=== PATIENT | male | born 1950 | race Caucasian/White ===

== ENCOUNTER 2024-05-19 11:15 | Inpatient (IN) | payer OTHER, MEDICARE, MEDICAID ==
[~2024-05-19] VITALS: Ht 157.5 cm; Wt 58.8 kg
[~2024-05-19 11:15] MED LIST: APIX5TAB PO; ATOR40TA52 PO; BUSP15TA60 PO; CITA-73 PO; CLOP75TA70 PO; GABA-339 PO; GLIP5TAB21 PO; INSU100I4; INSUINJ37 SC; ISOS1TAB28 PO; LOSA-534 PO; MONT-8 PO; PANT40T PO; POTA1TAB4 PO
[2024-05-19] MEDS: ACCU-CHEK COMFORT CURVE STRIP VI STA (11:23)
[2024-05-19] MEDS ORDERED: fentaNYL CITRATE 100 MCG/2 ML VL IV ONE (11:30)
[2024-05-19 11:41] LABS: Base Excess -0.6 mmol/L (-2.0-2.0)
[2024-05-19 11:50] VITALS: PULSE 70; RESP 16; O2SAT 97
[2024-05-19 12:14] LABS: Basophils # (auto) 0 10 ^3/uL (0-0.2); Basophils % (auto) 0.3 % (0.0-2.0); Eosinophils # (auto) 0.1 10 ^3/uL (0-0.8); Hematocrit 35.1 % (41.0-53.0); Hemoglobin 11.7 g/dL (13.5-17.5); Lymphocytes # (auto) 0.8 10 ^3/uL (0.4-5.4); Lymphocytes % (auto) 8.6 % (10.0-50.0); Mean Corpuscular Hemoglobin 29.1 pg (28.0-32.0); Mean Corpuscular Hgb Conc. 33.3 g/dL (32.0-36.0); Mean Corpuscular Volume 87.3 fL (80.0-100.0); Monocytes # (auto) 0.5 10 ^3/uL (0-1.3); Monocytes % (auto) 5.3 % (0.0-12.0); Neutrophils # (auto) 7.7 10 ^3/uL (1.6-8.6); Neutrophils % (auto) 84.8 % (37.0-80.0); Platelet Count (auto) 204 10^3/uL (140-450); Red Blood Cells 4.02 10^6/uL (4.5-5.90); Red Cell Distribution Width 15.2 % (11.8-14.3); White Blood Cell 9.1 10^3/uL (4.4-10.8)
[2024-05-19] MEDS: ONDANSETRON HCL 4 MG/2 ML VIAL IV ONE (12:21)
[2024-05-19] MEDS: SODIUM CHLORIDE 0.9% 1,000 ML IV ONE (12:24)
[2024-05-19] MEDS: InsuLIN REG 1unit/0.01ml Soln (100units/ml) SC ONE (12:24)
[2024-05-19 12:27] LABS: Alanine Aminotransferase 14 U/L (7-40); Alkaline Phosphatase 97 U/L (46-116); Anion Gap 5 (5-15); Aspartate Aminotransferase 14 U/L (13-40); BUN/Creatinine Ratio 11.1 (10.0-20.0); Blood Urea Nitrogen 12 mg/dL (9-23); Calcium 8.1 mg/dL (8.7-10.4); Carbon Dioxide 26 mmol/L (20-30); Chloride 106 mmol/L (98-107); Glucose 367 mg/dL (74-106); Lipase 28 U/L (12-53); Potassium 3.7 mmol/L (3.5-5.1); Sodium 137 mmol/L (136-145)
[2024-05-19 12:28] LABS: Albumin 3.4 g/dL (3.2-4.8); Bilirubin, Total 0.3 mg/dL (0.2-1.0); Total Protein 5.7 g/dL (5.7-8.2)
[2024-05-19] MEDS: fentaNYL CITRATE 100 MCG/2 ML VL IM ONE (12:57)
[2024-05-19] MEDS ORDERED: busPIRone HCL 10 MG TAB PO SCH (14:00)
[2024-05-19 14:41] LABS: Urine Bacteria None Seen /hpf (None Seen)
[2024-05-19] MEDS ORDERED: DEXTROSE (50%) 50ML SYRG IV PRN (14:45)
[2024-05-19] MEDS ORDERED: ONDANSETRON HCL 4 MG/2 ML VIAL IV PRN (14:45)
[2024-05-19 15:04] LABS: Urine Blood Negative /uL (Negative); Urine Clarity Clear (Clear); Urine Color Light-Yellow (Yellow); Urine Protein, UAD 2+ (Negative); Urine Specific Gravity 1.033 (1.001-1.035); Urine Urobilinogen Normal (Negative); Urine WBC 1 /hpf (0 - 3); Urine pH 6.5 (5.0-9.0)
[2024-05-19] MEDS: SODIUM CHLORIDE 0.9% 1,000 ML IV SCH (15:10)
[2024-05-19] MEDS: GABAPENTIN 300 MG CAP PO ONE (15:33)
[2024-05-19] MEDS: KETOROLAC TROMETH 30 MG/ML 1ML VIAL IV ONE (15:42)
[2024-05-19] MEDS: InsuLIN REG 1unit/0.01ml Soln (100units/ml) SC SCH (17:11)
[2024-05-19] MEDS: ACCU-CHEK COMFORT CURVE STRIP VI SCH (17:12)
[2024-05-19 18:00] VITALS: BP 121/67; PULSE 56; RESP 18; TEMP 98.8; O2SAT 95
[2024-05-19 21:00] VITALS: BP 111/58; PULSE 55; RESP 18; TEMP 98; O2SAT 97
[2024-05-19] MEDS: DOCUSATE SOD 100 MG CAP PO PRN (21:34)
[2024-05-19] MEDS: APIXABAN 5 MG TAB PO SCH (21:35)
[2024-05-19] MEDS: GABAPENTIN 300 MG CAP PO SCH (21:35)
[2024-05-19] MEDS: ASCORBIC ACID 500 MG TAB PO SCH (21:35)
[2024-05-19] MEDS: busPIRone HCL 10 MG TAB PO SCH (21:38)
[2024-05-19] MEDS: KETOROLAC TROMETH 30 MG/ML 1ML VIAL IV PRN (21:40)
[2024-05-20 01:00] VITALS: BP 122/64; PULSE 54; RESP 17; TEMP 97.6; O2SAT 94
[2024-05-20 04:45] LABS: Basophils # (auto) 0 10 ^3/uL (0-0.2); Basophils % (auto) 0.6 % (0.0-2.0); Eosinophils # (auto) 0.3 10 ^3/uL (0-0.8); Eosinophils % (auto) 4.3 % (0.0-7.0); Hematocrit 32.1 % (41.0-53.0); Hemoglobin 10.7 g/dL (13.5-17.5); Lymphocytes # (auto) 1.4 10 ^3/uL (0.4-5.4); Lymphocytes % (auto) 22.6 % (10.0-50.0); Mean Corpuscular Hemoglobin 29.1 pg (28.0-32.0); Mean Corpuscular Hgb Conc. 33.3 g/dL (32.0-36.0); Mean Corpuscular Volume 87.3 fL (80.0-100.0); Monocytes # (auto) 0.5 10 ^3/uL (0-1.3); Monocytes % (auto) 8.8 % (0.0-12.0); Neutrophils % (auto) 63.7 % (37.0-80.0); Platelet Count (auto) 184 10^3/uL (140-450); Red Blood Cells 3.68 10^6/uL (4.5-5.90); Red Cell Distribution Width 15.2 % (11.8-14.3); White Blood Cell 6.2 10^3/uL (4.4-10.8)
[2024-05-20 05:00] VITALS: BP 138/69; PULSE 52; RESP 18; TEMP 97.5; O2SAT 96
[2024-05-20 05:02] LABS: Alanine Aminotransferase 14 U/L (7-40); Albumin 3.2 g/dL (3.2-4.8); Alkaline Phosphatase 88 U/L (46-116); Anion Gap 3 (5-15); Aspartate Aminotransferase 11 U/L (13-40); BUN/Creatinine Ratio 13.6 (10.0-20.0); Bilirubin, Total 0.3 mg/dL (0.2-1.0); Blood Urea Nitrogen 14 mg/dL (9-23); Calcium 8.4 mg/dL (8.7-10.4); Carbon Dioxide 30 mmol/L (20-30); Chloride 108 mmol/L (98-107); Potassium 3.4 mmol/L (3.5-5.1); Sodium 141 mmol/L (136-145); Total Protein 5.1 g/dL (5.7-8.2)
[2024-05-20 05:03] LABS: Glucose 158 mg/dL (74-106)
[2024-05-20] MEDS: ISOSORBIDE MONONITRATE ER 60 MG TAB PO SCH (06:11)
[2024-05-20] MEDS: CITALOPRAM HYDROBR 20 MG TAB PO SCH (06:12)
[2024-05-20] MEDS: CLOPIDOGREL BISULFATE 75 MG TAB PO SCH (06:12)
[2024-05-20 08:37] VITALS: BP 117/54; PULSE 58; RESP 16; TEMP 98; O2SAT 96
[2024-05-20] MEDS: LOSARTAN POTASSIUM 50 MG TAB PO SCH (08:58)
[2024-05-20] MEDS: MONTELUKAST SODIUM 10 MG TAB PO SCH (08:58)
[2024-05-20] MEDS: PANTOPRAZOLE 40 MG TAB PO SCH (08:58)
[2024-05-20] MEDS: ZINC SULFATE 220mg CAP or TAB PO SCH (08:59)
[2024-05-20] MEDS: MULTIPLE VITAMIN TAB PO SCH (08:59)
[2024-05-20] MEDS ORDERED: ENOXAPARIN SOD 40 MG/0.4 ML SYRINGE SC SCH (10:00)
[2024-05-20 12:59] VITALS: BP 137/75; PULSE 55; RESP 16; TEMP 97.9; O2SAT 94
[2024-05-20] MEDS: LACTULOSE 20Gm/30ML SOLN PO ONE (14:07)
[2024-05-20 16:43] VITALS: BP 140/75; PULSE 65; RESP 18; TEMP 98.3; O2SAT 96
[2024-05-20] MEDS: ACETAMINOPHEN 325 MG TAB PO PRN (17:35)
[2024-05-20 21:00] VITALS: BP 133/63; PULSE 65; RESP 18; TEMP 98; O2SAT 94
[2024-05-20] MEDS: MUPIROCIN 2% OINT 15gm or 22gm FOR MRSA NARES EACHNOSTRI SCH (22:29)
[2024-05-21] VITALS (8 sets, daily range): BP systolic 133–163; BP diastolic 54–80; PULSE 52–63; RESP 16–96; TEMP 98.1–98.7; O2SAT 94–99
[2024-05-21] MEDS: LACTULOSE 20Gm/30ML SOLN PO SCH (09:24)
[2024-05-22] VITALS (8 sets, daily range): BP systolic 111–177; BP diastolic 54–76; PULSE 52–65; RESP 16–18; TEMP 97.4–98.6; O2SAT 95–97
[2024-05-23] VITALS (7 sets, daily range): BP systolic 143–156; BP diastolic 57–81; PULSE 60–72; RESP 16–17; TEMP 97.9–99.2; O2SAT 93–96
[2024-05-23] MEDS ORDERED: ZOLP5TAB5 PO (16:39)
[2024-05-23] MEDS ORDERED: MIRT1TAB38 PO (16:39)
[2024-05-23] MEDS ORDERED: LISI40TA16 PO (16:39)
[2024-05-23] MEDS ORDERED: DULO20CA PO (16:39)
[2024-05-23] MEDS ORDERED: BUPR150T18 PO (16:39)
== END 2024-05-23 18:00 | disposition home or self-care (01) | DRG 392 ==
LOC: EDBD 11:15 → ER 11:18 → OVERFLOW 14:39 → WEST WING 17:51
PROVIDERS: ADMIT Nurse Practitioner Family; ATTEND Family Medicine
DX: K59.00 Constipation, unspecified (principal); J44.1 Chronic obstructive pulmonary disease with (acute) exacerbation; I50.32 Chronic diastolic (congestive) heart failure; E11.65 Type 2 diabetes mellitus with hyperglycemia; K21.9 Gastro-esophageal reflux disease without esophagitis; I50.9 Heart failure, unspecified; E11.42 Type 2 diabetes mellitus with diabetic polyneuropathy; F41.9 Anxiety disorder, unspecified; I11.0 Hypertensive heart disease with heart failure; E78.5 Hyperlipidemia, unspecified; F32.A Depression, unspecified; Z88.8 Allergy status to other drugs, medicaments and biological substances; I25.2 Old myocardial infarction; Z86.73 Personal history of transient ischemic attack (TIA), and cerebral infarction without residual deficits; Z89.612 Acquired absence of left leg above knee; Z89.512 Acquired absence of left leg below knee; Z95.5 Presence of coronary angioplasty implant and graft; Z89.511 Acquired absence of right leg below knee; Z89.611 Acquired absence of right leg above knee; Z79.02 Long term (current) use of antithrombotics/antiplatelets; Z79.4 Long term (current) use of insulin
CPT/HCPCS: 36415; 36600; 74176; 80053; 81001; 82805; 82962; 83036; 83690; 85025; 87081; 93005; 96372; 96374; G0378; J1815; J1885; J2405

== ENCOUNTER 2024-06-14 11:19 | Inpatient (IN) | payer OTHER, MEDICARE, MEDICAID ==
[~2024-06-14] VITALS: Ht 154.9 cm; Wt 53.7 kg
[~2024-06-14 11:19] MED LIST changes: +BUPR150T18 PO; +DULO20CA PO; +LISI40TA16 PO; -LOSA-534 PO; +MIRT1TAB38 PO; +ZOLP5TAB5 PO
[2024-06-14 14:19] LABS: Basophils # (auto) 0 10 ^3/uL (0-0.2); Basophils % (auto) 0.4 % (0.0-2.0); Eosinophils # (auto) 0.1 10 ^3/uL (0-0.8); Eosinophils % (auto) 2.2 % (0.0-7.0); Hematocrit 36.2 % (41.0-53.0); Hemoglobin 12.1 g/dL (13.5-17.5); Lymphocytes # (auto) 0.9 10 ^3/uL (0.4-5.4); Lymphocytes % (auto) 15.6 % (10.0-50.0); Mean Corpuscular Hemoglobin 28.7 pg (28.0-32.0); Mean Corpuscular Hgb Conc. 33.4 g/dL (32.0-36.0); Mean Corpuscular Volume 85.8 fL (80.0-100.0); Monocytes # (auto) 0.4 10 ^3/uL (0-1.3); Monocytes % (auto) 7.7 % (0.0-12.0); Neutrophils # (auto) 4.2 10 ^3/uL (1.6-8.6); Neutrophils % (auto) 74.1 % (37.0-80.0); Platelet Count (auto) 224 10^3/uL (140-450); Red Blood Cells 4.22 10^6/uL (4.5-5.90); Red Cell Distribution Width 15.1 % (11.8-14.3); White Blood Cell 5.6 10^3/uL (4.4-10.8)
[2024-06-14 14:31] LABS: Alanine Aminotransferase 11 U/L (7-40); Albumin 3.8 g/dL (3.2-4.8); Alkaline Phosphatase 101 U/L (46-116); Anion Gap 6 (5-15); Aspartate Aminotransferase < 8 U/L (13-40); BUN/Creatinine Ratio 11.1 (10.0-20.0); Bilirubin, Total 0.3 mg/dL (0.2-1.0); Blood Urea Nitrogen 12 mg/dL (9-23); Calcium 9.3 mg/dL (8.7-10.4); Carbon Dioxide 29 mmol/L (20-30); Chloride 104 mmol/L (98-107); Glucose 267 mg/dL (74-106); Potassium 3.6 mmol/L (3.5-5.1); Sodium 139 mmol/L (136-145); Total Protein 6.4 g/dL (5.7-8.2)
[2024-06-14 14:33] LABS: Thyroid Stimulating Hormone 0.58 uIU/mL (0.55-4.78)
[2024-06-14 15:57] LABS: Urine Bacteria MANY /hpf (None Seen); Urine Blood 2+ /uL (Negative); Urine Clarity Ex.Turbid (Clear); Urine Color Light-Brown (Yellow); Urine Mucus FEW (None Seen); Urine Protein, UAD 3+ (Negative); Urine Specific Gravity 1.032 (1.001-1.035); Urine Urobilinogen Normal (Negative); Urine WBC 2386 /hpf (0 - 3); Urine WBC Clumps PRESENT /hpf (None Seen); Urine pH 7.5 (5.0-9.0)
[2024-06-14] MEDS ORDERED: HYDROmorphone HCL 2 MG/ML VL/or syr IV PRN (18:15)
[2024-06-14] MEDS ORDERED: DEXTROSE (50%) 50ML SYRG IV PRN (18:15)
[2024-06-14] MEDS ORDERED: ACETAMINOPHEN 325 MG TAB PO PRN (18:15)
[2024-06-14] MEDS: LACTATED RINGER'S 1,000 ML IV ONE (18:15)
[2024-06-14] MEDS: cefTRIAXone 1GM/50ML D5W 50 ML IV ONE (19:50)
[2024-06-14 20:21] VITALS: PULSE 58; RESP 16; O2SAT 96
[2024-06-14] MEDS: SODIUM CHLOR 0.9% PF (SALINE LOCK) 10ML VIAL/SYR IV SCH (23:01)
[2024-06-14] MEDS: InsuLIN REG 1unit/0.01ml Soln (100units/ml) SC SCH (23:06)
[2024-06-14] MEDS: ACCU-CHEK COMFORT CURVE STRIP VI SCH (23:06)
[2024-06-15 06:07] LABS: Basophils # (auto) 0 10 ^3/uL (0-0.2); Basophils % (auto) 0.4 % (0.0-2.0); Eosinophils # (auto) 0.2 10 ^3/uL (0-0.8); Eosinophils % (auto) 3.1 % (0.0-7.0); Hematocrit 36.6 % (41.0-53.0); Hemoglobin 12.4 g/dL (13.5-17.5); Lymphocytes % (auto) 13.7 % (10.0-50.0); Mean Corpuscular Hemoglobin 28.9 pg (28.0-32.0); Mean Corpuscular Hgb Conc. 33.8 g/dL (32.0-36.0); Mean Corpuscular Volume 85.6 fL (80.0-100.0); Monocytes # (auto) 0.6 10 ^3/uL (0-1.3); Monocytes % (auto) 8.3 % (0.0-12.0); Neutrophils # (auto) 5.6 10 ^3/uL (1.6-8.6); Neutrophils % (auto) 74.5 % (37.0-80.0); Nucleated Red Blood Cells % 0.1 %; Platelet Count (auto) 231 10^3/uL (140-450); Red Blood Cells 4.28 10^6/uL (4.5-5.90); Red Cell Distribution Width 15.3 % (11.8-14.3); White Blood Cell 7.5 10^3/uL (4.4-10.8)
[2024-06-15 06:13] LABS: Alanine Aminotransferase 10 U/L (7-40); Alkaline Phosphatase 104 U/L (46-116); Anion Gap 6 (5-15); Aspartate Aminotransferase 10 U/L (13-40); Blood Urea Nitrogen 17 mg/dL (9-23); Calcium 9.3 mg/dL (8.7-10.4); Carbon Dioxide 30 mmol/L (20-30); Chloride 105 mmol/L (98-107); Glucose 99 mg/dL (74-106); Potassium 2.9 mmol/L (3.5-5.1); Sodium 141 mmol/L (136-145)
[2024-06-15 06:14] LABS: Bilirubin, Total 0.3 mg/dL (0.2-1.0); Total Protein 6.6 g/dL (5.7-8.2)
[2024-06-15] MEDS: cefTRIAXone 1GM/50ML D5W 50 ML IV SCH (10:21)
[2024-06-15] MEDS: ENOXAPARIN SOD 40 MG/0.4 ML SYRINGE SC SCH (10:22)
[2024-06-15] MEDS: hydrALAZINE HCL 20 MG/ML VL IV PRN (22:04)
[2024-06-16] VITALS (10 sets, daily range): BP systolic 117–153; BP diastolic 61–86; PULSE 40–88; RESP 18–19; TEMP 97.8–99.3; O2SAT 94–97
[2024-06-16] MEDS: POTASSIUM CHL 20MEQ/100ML 100 ML IV SCH ×2 (01:26→08:15)
[2024-06-16] MEDS: POTASSIUM CHL 20MEQ/100ML 100 ML IV ONE (06:25)
[2024-06-16 06:45] LABS: Basophils # (auto) 0 10 ^3/uL (0-0.2); Basophils % (auto) 0.3 % (0.0-2.0); Eosinophils # (auto) 0.1 10 ^3/uL (0-0.8); Eosinophils % (auto) 1.7 % (0.0-7.0); Hematocrit 33.1 % (41.0-53.0); Hemoglobin 11.3 g/dL (13.5-17.5); Lymphocytes % (auto) 12.8 % (10.0-50.0); Mean Corpuscular Hgb Conc. 34.2 g/dL (32.0-36.0); Mean Corpuscular Volume 84.7 fL (80.0-100.0); Monocytes # (auto) 0.7 10 ^3/uL (0-1.3); Monocytes % (auto) 8.8 % (0.0-12.0); Neutrophils # (auto) 5.7 10 ^3/uL (1.6-8.6); Neutrophils % (auto) 76.4 % (37.0-80.0); Platelet Count (auto) 189 10^3/uL (140-450); Red Blood Cells 3.91 10^6/uL (4.5-5.90); Red Cell Distribution Width 15.3 % (11.8-14.3); White Blood Cell 7.4 10^3/uL (4.4-10.8)
[2024-06-16 07:00] LABS: Alanine Aminotransferase 10 U/L (7-40); Albumin 3.5 g/dL (3.2-4.8); Alkaline Phosphatase 97 U/L (46-116); Anion Gap 6 (5-15); Aspartate Aminotransferase 10 U/L (13-40); BUN/Creatinine Ratio 15.7 (10.0-20.0); Blood Urea Nitrogen 16 mg/dL (9-23); Calcium 8.7 mg/dL (8.7-10.4); Carbon Dioxide 26 mmol/L (20-30); Chloride 105 mmol/L (98-107); Potassium 3.3 mmol/L (3.5-5.1); Sodium 137 mmol/L (136-145)
[2024-06-16 07:01] LABS: Bilirubin, Total 0.3 mg/dL (0.2-1.0); Total Protein 5.8 g/dL (5.7-8.2)
[2024-06-16 07:08] LABS: Glucose 237 mg/dL (74-106)
[2024-06-16] MEDS: HYDROcodone-ACET 5/325MG TAB PO PRN (21:07)
[2024-06-16] MEDS: MORPHINE SULFATE 4 MG/ML SYR/VIAL ONE (23:16)
[2024-06-17] VITALS (8 sets, daily range): BP systolic 105–166; BP diastolic 52–80; PULSE 43–72; RESP 16–19; TEMP 97.6–98.5; O2SAT 92–97
[2024-06-17 05:33] LABS: Basophils # (auto) 0 10 ^3/uL (0-0.2); Basophils % (auto) 0.6 % (0.0-2.0); Eosinophils # (auto) 0.2 10 ^3/uL (0-0.8); Eosinophils % (auto) 3.8 % (0.0-7.0); Hematocrit 31.7 % (41.0-53.0); Hemoglobin 10.8 g/dL (13.5-17.5); Lymphocytes # (auto) 1.1 10 ^3/uL (0.4-5.4); Lymphocytes % (auto) 21.2 % (10.0-50.0); Mean Corpuscular Hemoglobin 28.8 pg (28.0-32.0); Mean Corpuscular Hgb Conc. 33.9 g/dL (32.0-36.0); Monocytes # (auto) 0.5 10 ^3/uL (0-1.3); Monocytes % (auto) 8.8 % (0.0-12.0); Neutrophils # (auto) 3.5 10 ^3/uL (1.6-8.6); Neutrophils % (auto) 65.6 % (37.0-80.0); Platelet Count (auto) 182 10^3/uL (140-450); Red Blood Cells 3.74 10^6/uL (4.5-5.90); White Blood Cell 5.3 10^3/uL (4.4-10.8)
[2024-06-17 05:54] LABS: Albumin 3.3 g/dL (3.2-4.8); Alkaline Phosphatase 88 U/L (46-116); Anion Gap 4 (5-15); Aspartate Aminotransferase 8 U/L (13-40); BUN/Creatinine Ratio 12.6 (10.0-20.0); Blood Urea Nitrogen 14 mg/dL (9-23); Calcium 8.4 mg/dL (8.7-10.4); Carbon Dioxide 26 mmol/L (20-30); Chloride 107 mmol/L (98-107); Glucose 282 mg/dL (74-106); Potassium 3.7 mmol/L (3.5-5.1); Sodium 137 mmol/L (136-145)
[2024-06-17 05:55] LABS: Bilirubin, Total 0.2 mg/dL (0.2-1.0); Total Protein 5.5 g/dL (5.7-8.2)
[2024-06-17 06:17] LABS: Alanine Aminotransferase 9 U/L (7-40)
[2024-06-17] MEDS: ONDANSETRON HCL 4 MG/2 ML VIAL IV PRN (09:22)
[2024-06-17] MEDS ORDERED: DEXTROSE (50%) 50ML SYRG IV PRN (09:30)
[2024-06-17] MEDS: InsuLIN REG 1unit/0.01ml Soln (100units/ml) SC SCH (10:54)
[2024-06-17] MEDS: ACCU-CHEK COMFORT CURVE STRIP VI SCH (11:48)
[2024-06-17] MEDS: MUPIROCIN 2% OINT 15gm or 22gm FOR MRSA NARES EACHNOSTRI SCH (21:00)
[2024-06-18] VITALS (8 sets, daily range): BP systolic 135–152; BP diastolic 65–85; PULSE 56–73; RESP 17–19; TEMP 97.2–98.7; O2SAT 93–97
[2024-06-18 05:37] LABS: Basophils # (auto) 0 10 ^3/uL (0-0.2); Basophils % (auto) 0.8 % (0.0-2.0); Eosinophils # (auto) 0.2 10 ^3/uL (0-0.8); Hematocrit 32.4 % (41.0-53.0); Hemoglobin 11.1 g/dL (13.5-17.5); Mean Corpuscular Hemoglobin 29.1 pg (28.0-32.0); Mean Corpuscular Hgb Conc. 34.2 g/dL (32.0-36.0); Monocytes # (auto) 0.5 10 ^3/uL (0-1.3); Monocytes % (auto) 8.1 % (0.0-12.0); Neutrophils # (auto) 3.9 10 ^3/uL (1.6-8.6); Neutrophils % (auto) 69.1 % (37.0-80.0); Platelet Count (auto) 205 10^3/uL (140-450); Red Blood Cells 3.81 10^6/uL (4.5-5.90); White Blood Cell 5.6 10^3/uL (4.4-10.8)
[2024-06-18 05:56] LABS: Alanine Aminotransferase 10 U/L (7-40); Albumin 3.5 g/dL (3.2-4.8); Alkaline Phosphatase 89 U/L (46-116); Anion Gap 6 (5-15); Aspartate Aminotransferase 11 U/L (13-40); BUN/Creatinine Ratio 12.9 (10.0-20.0); Bilirubin, Total 0.3 mg/dL (0.2-1.0); Blood Urea Nitrogen 12 mg/dL (9-23); Calcium 8.7 mg/dL (8.7-10.4); Carbon Dioxide 26 mmol/L (20-30); Chloride 106 mmol/L (98-107); Potassium 3.3 mmol/L (3.5-5.1); Sodium 138 mmol/L (136-145); Total Protein 5.8 g/dL (5.7-8.2)
[2024-06-18 05:59] LABS: Glucose 123 mg/dL (74-106)
[2024-06-18] MEDS: GOLYTELY 4L KIT PO ONE (14:15)
[2024-06-19] VITALS (8 sets, daily range): BP systolic 115–143; BP diastolic 6–72; PULSE 43–66; RESP 14–22; TEMP 98.1–98.7; O2SAT 63–98
[2024-06-19] MEDS: MAGNESIUM CITRATE SOLUTION 300 ML BTL PO ONE (03:00)
[2024-06-19] MEDS: GOLYTELY 4L KIT PO ONE (03:12)
[2024-06-19 06:20] LABS: Alanine Aminotransferase 14 U/L (7-40); Alkaline Phosphatase 101 U/L (46-116); Anion Gap 8 (5-15); BUN/Creatinine Ratio 9.1 (10.0-20.0); Blood Urea Nitrogen 9 mg/dL (9-23); Calcium 9.4 mg/dL (8.7-10.4); Carbon Dioxide 28 mmol/L (20-30); Chloride 103 mmol/L (98-107); Glucose 133 mg/dL (74-106); Potassium 3.8 mmol/L (3.5-5.1); Sodium 139 mmol/L (136-145)
[2024-06-19 06:21] LABS: Aspartate Aminotransferase 17 U/L (13-40); Bilirubin, Total 0.3 mg/dL (0.2-1.0); Total Protein 6.6 g/dL (5.7-8.2)
[2024-06-19 06:22] LABS: Basophils # (auto) 0 10 ^3/uL (0-0.2); Basophils % (auto) 0.9 % (0.0-2.0); Eosinophils # (auto) 0.2 10 ^3/uL (0-0.8); Eosinophils % (auto) 4.3 % (0.0-7.0); Hematocrit 35.3 % (41.0-53.0); Hemoglobin 12.2 g/dL (13.5-17.5); Lymphocytes % (auto) 22.8 % (10.0-50.0); Mean Corpuscular Hemoglobin 29.2 pg (28.0-32.0); Mean Corpuscular Hgb Conc. 34.4 g/dL (32.0-36.0); Monocytes # (auto) 0.4 10 ^3/uL (0-1.3); Monocytes % (auto) 8.6 % (0.0-12.0); Neutrophils # (auto) 2.9 10 ^3/uL (1.6-8.6); Neutrophils % (auto) 63.4 % (37.0-80.0); Platelet Count (auto) 232 10^3/uL (140-450); Red Blood Cells 4.16 10^6/uL (4.5-5.90); Red Cell Distribution Width 15.2 % (11.8-14.3); White Blood Cell 4.6 10^3/uL (4.4-10.8)
[2024-06-19] MEDS ORDERED: SODIUM CHLORIDE LOCK 10 ML ONE (08:01)
[2024-06-19 08:39] LABS: INR 1.08 (0.9-1.15); Prothrombin Time 11.4 sec (9.3-11.8)
[2024-06-19] MEDS: LIDOCAINE VISCOUS 2% 15ML UD ONE (09:53)
[2024-06-19] MEDS: MIDAZOLAM HCL 5 MG/ML-1ML VIAL ONE (09:59)
[2024-06-19] MEDS: fentaNYL CITRATE 100 MCG/2 ML VL ONE (09:59)
[2024-06-19] MEDS: diphenhdrAMINE HCL 50 MG/1 ML VL ONE (09:59)
[2024-06-20] VITALS (8 sets, daily range): BP systolic 127–156; BP diastolic 73–95; PULSE 50–80; RESP 15–18; TEMP 98–99; O2SAT 93–97
[2024-06-20 11:34] LABS: COVID19 ANTIGEN SOFIA FIA NEGATIVE (NEGATIVE)
[2024-06-20] MEDS: LORazepam 0.5 MG TAB PO PRN (16:05)
[2024-06-21] VITALS (8 sets, daily range): BP systolic 140–155; BP diastolic 53–94; PULSE 39–70; RESP 15–20; TEMP 97.8–98.7; O2SAT 94–98
[2024-06-21] MEDS ORDERED: DEXTROSE (50%) 50ML SYRG IV PRN (00:15)
[2024-06-21] MEDS: InsuLIN REG 1unit/0.01ml Soln (100units/ml) SC SCH (04:00)
[2024-06-21] MEDS ORDERED: ACCU-CHEK COMFORT CURVE STRIP VI SCH (04:00)
[2024-06-21] MEDS: ACCU-CHEK COMFORT CURVE STRIP VI SCH (04:01)
[2024-06-21] MEDS: DOCUSATE SOD 100 MG CAP PO PRN (23:18)
[2024-06-22] VITALS (9 sets, daily range): BP systolic 105–152; BP diastolic 71–77; PULSE 58–75; RESP 15–20; TEMP 97.5–98.9; O2SAT 93–98
[2024-06-23] VITALS (7 sets, daily range): BP systolic 141–152; BP diastolic 64–75; PULSE 54–65; RESP 18–22; TEMP 98.2–98.6; O2SAT 93–97
[2024-06-23] MEDS ORDERED: CIPR-173 PO (09:02)
[2024-06-23] MEDS ORDERED: HYDR-4902 PO (09:02)
== END 2024-06-23 18:54 | disposition home or self-care (01) | DRG 394 ==
LOC: ER 11:19 → OVERFLOW 18:04 → TELE-EAST 18:16 → EAST 06-15 23:52 → TELE-EAST 06-16 01:27
PROVIDERS: ADMIT Internal Medicine; ATTEND Family Medicine
PROC: 0DB68ZX Excision of Stomach, Via Natural or Artificial Opening Endoscopic, Diagnostic (ICD-10-PCS; 2024-06-19)
PROC: 0DB48ZX Excision of Esophagogastric Junction, Via Natural or Artificial Opening Endoscopic, Diagnostic (ICD-10-PCS; 2024-06-19)
PROC: 0DBP8ZZ Excision of Rectum, Via Natural or Artificial Opening Endoscopic (ICD-10-PCS; principal; 2024-06-19 09:50)
PROC: 0DB98ZX Excision of Duodenum, Via Natural or Artificial Opening Endoscopic, Diagnostic (ICD-10-PCS; 2024-06-19 09:50)
DX: K62.1 Rectal polyp (principal); I50.32 Chronic diastolic (congestive) heart failure; N30.00 Acute cystitis without hematuria; J44.1 Chronic obstructive pulmonary disease with (acute) exacerbation; K29.80 Duodenitis without bleeding; K29.70 Gastritis, unspecified, without bleeding; F41.9 Anxiety disorder, unspecified; I11.0 Hypertensive heart disease with heart failure; N28.1 Cyst of kidney, acquired; Z20.822 Contact with and (suspected) exposure to COVID-19; K57.30 Diverticulosis of large intestine without perforation or abscess without bleeding; K44.9 Diaphragmatic hernia without obstruction or gangrene; K21.9 Gastro-esophageal reflux disease without esophagitis; E11.9 Type 2 diabetes mellitus without complications; D17.5 Benign lipomatous neoplasm of intra-abdominal organs; Z79.4 Long term (current) use of insulin; Z79.02 Long term (current) use of antithrombotics/antiplatelets; Z99.3 Dependence on wheelchair; I25.2 Old myocardial infarction; Z88.8 Allergy status to other drugs, medicaments and biological substances; Z86.73 Personal history of transient ischemic attack (TIA), and cerebral infarction without residual deficits; Z89.612 Acquired absence of left leg above knee; Z89.611 Acquired absence of right leg above knee
CPT/HCPCS: 36415; 43239; 45380; 71045; 74176; 80053; 81001; 82962; 83036; 83605; 83615; 83735; 84443; 85025; 85610; 85730; 86850; 86900; 86901; 87040; 87081; 87086; 87426; 93005; 97110; 97163; 99291; G0378; J1815; J2250; J2405; J3480

== ENCOUNTER 2024-07-01 11:54 | Inpatient (IN) | payer MEDICARE, MEDICAID ==
[2024-07-01] VITALS (28 sets, daily range): BP systolic 78–127; BP diastolic 39–76; PULSE 55–117; RESP 14–29; TEMP 98.6–100.8; O2SAT 93–100
[~2024-07-01] VITALS: Ht 91.4 cm; Wt 53.9 kg
[~2024-07-01 11:54] MED LIST changes: +CIPR-173 PO; +HALO0.5T9 PA; +HYDR-4902 PO; -INSU100I4; +INSU100I4 SC
[2024-07-01] MEDS: ETOMIDATE (2MG/ML) 20ML VIAL IV ONE ×2 (12:06→12:09)
[2024-07-01] MEDS: SUCCINYLCHOLINE CHLORIDE 20 MG/ML 10ML VIAL IV ONE ×2 (12:06→12:09)
[2024-07-01] MEDS: MIDAZOLAM DRIP 50 mg/50mL 50 ML IV SCH (12:11)
[2024-07-01] MEDS: MIDAZOLAM DRIP 50 mg/50mL 50 ML IV ONE (12:11)
[2024-07-01 12:27] LABS: Basophils # (auto) 0 10 ^3/uL (0-0.2); Basophils % (auto) 0.1 % (0.0-2.0); Eosinophils # (auto) 0 10 ^3/uL (0-0.8); Lymphocytes # (auto) 0.4 10 ^3/uL (0.4-5.4); Mean Corpuscular Hemoglobin 29.1 pg (28.0-32.0); Mean Corpuscular Hgb Conc. 34.1 g/dL (32.0-36.0); Mean Corpuscular Volume 85.3 fL (80.0-100.0); Monocytes # (auto) 0.8 10 ^3/uL (0-1.3); Monocytes % (auto) 4.2 % (0.0-12.0); Neutrophils # (auto) 16.9 10 ^3/uL (1.6-8.6); Neutrophils % (auto) 93.7 % (37.0-80.0); Platelet Count (auto) 364 10^3/uL (140-450); Red Blood Cells 4.81 10^6/uL (4.5-5.90); Red Cell Distribution Width 15.5 % (11.8-14.3)
[2024-07-01] MEDS: fentaNYL Drip 2500mCg/250mlNS 250 ML IV SCH (12:35)
[2024-07-01] MEDS: fentaNYL Drip 2500mCg/250mlNS 250 ML IV ONE (12:47)
[2024-07-01 12:58] LABS: Alanine Aminotransferase 17 U/L (7-40); Albumin 4.2 g/dL (3.2-4.8); Alkaline Phosphatase 106 U/L (46-116); Anion Gap 9 (5-15); Aspartate Aminotransferase 30 U/L (13-40); BUN/Creatinine Ratio 16.5 (10.0-20.0); Bilirubin, Total 0.3 mg/dL (0.2-1.0); Blood Urea Nitrogen 18 mg/dL (9-23); Calcium 9.3 mg/dL (8.7-10.4); Carbon Dioxide 28 mmol/L (20-30); Chloride 104 mmol/L (98-107); Glucose 105 mg/dL (74-106); Sodium 141 mmol/L (136-145); Total Protein 6.8 g/dL (5.7-8.2)
[2024-07-01] MEDS: PROPOFOL 100 ML IV SCH (12:58)
[2024-07-01] MEDS: PROPOFOL 100 ML IV ONE (13:01)
[2024-07-01 13:03] LABS: Lactic Acid w/Reflex 2.4 mmol/L (0.4-2.0)
[2024-07-01 13:11] LABS: Urine Bacteria None Seen /hpf (None Seen)
[2024-07-01 13:25] LABS: Urine Blood 3+ /uL (Negative); Urine Clarity Clear (Clear); Urine Color Yellow (Yellow); Urine Protein, UAD 3+ (Negative); Urine Specific Gravity 1.024 (1.001-1.035); Urine Urobilinogen Normal (Negative); Urine WBC 1 /hpf (0 - 3); Urine pH 6.5 (5.0-9.0)
[2024-07-01] MEDS: EPINEPHrine HCL 250 ML IV ONE ×2 (13:27→13:52)
[2024-07-01] MEDS: AMIODARONE 450mg/250ml AE 250 ML IV ONE (13:28)
[2024-07-01 14:24] LABS: INR 1.06 (0.9-1.15); Partial Thromboplastin Time 24.5 SEC (24.5-34.5); Prothrombin Time 11.2 sec (9.3-11.8)
[2024-07-01] MEDS: HEPARIN SODIUM (PORCINE) 5000 UNITS/ML 1ML VIAL IV ONE (15:23)
[2024-07-01] MEDS: PIPERACILLIN-TAZO 4.5GM 100 ML IV ONE (15:24)
[2024-07-01] MEDS: HEPARIN DRIP/D5W 100UNITS/ML 250 ML IV SCH (15:24)
[2024-07-01] MEDS: NOREPINEPHRINE 8 MG/250ML KIT 250 ML IV SCH (15:35)
[2024-07-01] MEDS: SODIUM CHL 0.9% 0 ML ONE (16:35)
[2024-07-01] MEDS: ANGIOMAX 250 MG VIAL IV ONE (16:36)
[2024-07-01] MEDS: IODIXANOL 320MG/ML 100ML BTL IV ONE ×2 (16:36→16:37)
[2024-07-01] MEDS: LIDOCAINE 2%HCL (LOCAL ANESTH.) INJ 20ML MDV ONE (16:36)
[2024-07-01] MEDS: POTASSIUM EFFERVESENT TAB 25 MEQ NG ONE (16:47)
[2024-07-01] MEDS ORDERED: NITROGLYCERIN 0.4 MG SL TAB SL PRN (17:30)
[2024-07-01] MEDS ORDERED: LORazepam 2MG/ML-1ML VIAL IV PRN (17:30)
[2024-07-01] MEDS ORDERED: MORPHINE SULFATE INJ 2 MG/ml SYRG IV PRN (17:30)
[2024-07-01] MEDS ORDERED: ACETAMINOPHEN 650 MG RECT SUPP PR PRN (17:30)
[2024-07-01] MEDS: VASOPRESSIN 20 UNITS in SODIUM CHL 0.9% 99 ML IV SCH (18:00)
[2024-07-01] MEDS ORDERED: VANCOMYCIN PER PHARMACY 0 MG IV SCH (18:00)
[2024-07-01] MEDS: IPRATROPIUM BROM 0.5 MG/2.5ML INH SOL NEB SCH (18:32)
[2024-07-01 18:38] LABS: Triglycerides 109 mg/dL (< 150)
[2024-07-01 18:39] LABS: LDL Cholesterol 125 mg/dL (< 100)
[2024-07-01 18:40] LABS: Cholesterol 206 mg/dL (< 200); HDL Cholesterol 59 mg/dL (40-59)
[2024-07-01] MEDS: SODIUM CHLORIDE 0.9% 1,000 ML IV ONE (19:00)
[2024-07-01] MEDS: VANCOMYCIN 1GM/200ML 200 ML IV ONE (19:13)
[2024-07-01] MEDS: CEFEPIME 1GM/ 50ML 50 ML IV ONE (19:20)
[2024-07-01] MEDS: SODIUM CHLORIDE 0.9% 1,000 ML IV SCH (20:50)
[2024-07-01 22:12] LABS: INR 1.18 (0.9-1.15); Partial Thromboplastin Time 52.2 SEC (24.5-34.5); Prothrombin Time 12.4 sec (9.3-11.8)
[2024-07-01] MEDS: EPINEPHrine HCL 250 ML IV SCH (23:15)
[2024-07-02] VITALS (105 sets, daily range): BP systolic 86–141; BP diastolic 38–75; PULSE 52–80; RESP 13–28; TEMP 96.4–100.8; O2SAT 90–100
[2024-07-02 00:54] LABS: Lactic Acid w/Reflex 3.8 mmol/L (0.4-2.0)
[2024-07-02 04:01] LABS: Basophils # (auto) 0 10 ^3/uL (0-0.2); Basophils % (auto) 0.1 % (0.0-2.0); Eosinophils # (auto) 0 10 ^3/uL (0-0.8); Hematocrit 32.9 % (41.0-53.0); Hemoglobin 10.9 g/dL (13.5-17.5); Lymphocytes # (auto) 0.9 10 ^3/uL (0.4-5.4); Lymphocytes % (auto) 4.1 % (10.0-50.0); Mean Corpuscular Hemoglobin 28.7 pg (28.0-32.0); Mean Corpuscular Volume 86.7 fL (80.0-100.0); Monocytes # (auto) 0.8 10 ^3/uL (0-1.3); Monocytes % (auto) 3.6 % (0.0-12.0); Neutrophils # (auto) 19.8 10 ^3/uL (1.6-8.6); Neutrophils % (auto) 92.2 % (37.0-80.0); Platelet Count (auto) 319 10^3/uL (140-450); Red Cell Distribution Width 16.1 % (11.8-14.3); White Blood Cell 21.5 10^3/uL (4.4-10.8)
[2024-07-02 04:25] LABS: Alanine Aminotransferase 26 U/L (7-40); Albumin 3.3 g/dL (3.2-4.8); Alkaline Phosphatase 72 U/L (46-116); Anion Gap 10 (5-15); Aspartate Aminotransferase 123 U/L (13-40); BUN/Creatinine Ratio 11.7 (10.0-20.0); Bilirubin, Total 0.4 mg/dL (0.2-1.0); Blood Urea Nitrogen 25 mg/dL (9-23); Calcium 8.3 mg/dL (8.7-10.4); Carbon Dioxide 24 mmol/L (20-30); Chloride 106 mmol/L (98-107); Potassium 4.4 mmol/L (3.5-5.1); Sodium 140 mmol/L (136-145); Total Protein 5.4 g/dL (5.7-8.2)
[2024-07-02 04:39] LABS: Glucose 207 mg/dL (74-106)
[2024-07-02 04:41] LABS: INR 1.18 (0.9-1.15); Partial Thromboplastin Time 61.4 SEC (24.5-34.5); Prothrombin Time 12.4 sec (9.3-11.8)
[2024-07-02 07:22] LABS: Base Excess -6.3 mmol/L (-2.0-3.0)
[2024-07-02 09:04] LABS: Lactic Acid w/Reflex 4.2 mmol/L (0.4-2.0)
[2024-07-02] MEDS: CEFEPIME 1GM/ 50ML 50 ML IV SCH (09:38)
[2024-07-02 10:56] LABS: INR 1.25 (0.9-1.15)
[2024-07-02 14:25] LABS: Basophils # (auto) 0 10 ^3/uL (0-0.2); Basophils % (auto) 0.1 % (0.0-2.0); Eosinophils # (auto) 0 10 ^3/uL (0-0.8); Eosinophils % (auto) 0.1 % (0.0-7.0); Hematocrit 35.2 % (41.0-53.0); Hemoglobin 11.4 g/dL (13.5-17.5); Lymphocytes # (auto) 1.4 10 ^3/uL (0.4-5.4); Mean Corpuscular Hemoglobin 28.6 pg (28.0-32.0); Mean Corpuscular Hgb Conc. 32.4 g/dL (32.0-36.0); Mean Corpuscular Volume 88.1 fL (80.0-100.0); Monocytes # (auto) 1.4 10 ^3/uL (0-1.3); Monocytes % (auto) 5.9 % (0.0-12.0); Neutrophils # (auto) 20.5 10 ^3/uL (1.6-8.6); Neutrophils % (auto) 87.9 % (37.0-80.0); Platelet Count (auto) 273 10^3/uL (140-450); Red Cell Distribution Width 16.2 % (11.8-14.3); White Blood Cell 23.3 10^3/uL (4.4-10.8)
[2024-07-02 15:18] LABS: Base Excess -7.7 mmol/L (-2.0-3.0)
[2024-07-02] MEDS ORDERED: DEXTROSE (50%) 50ML SYRG IV PRN (16:15)
[2024-07-02] MEDS: SUCRALFATE 1 GM/10 ML ORAL SUSP PO SCH (17:00)
[2024-07-02] MEDS ORDERED: ACCU-CHEK COMFORT CURVE STRIP VI SCH (18:00)
[2024-07-02 19:36] LABS: Lactic Acid w/Reflex 3.7 mmol/L (0.4-2.0)
[2024-07-02] MEDS: DOXYCYCLINE 100MG/250ML 250 ML IV SCH (19:49)
[2024-07-02] MEDS: HYDROCORTISONE SOD SUCC 100 MG/2ML INJ VIAL IV SCH (19:50)
[2024-07-02] MEDS: ACCU-CHEK COMFORT CURVE STRIP VI SCH (19:50)
[2024-07-02] MEDS: VANCOMYCIN 1GM/200ML 200 ML IV SCH (19:58)
[2024-07-02] MEDS: InsuLIN REG 1unit/0.01ml Soln (100units/ml) SC SCH (20:14)
[2024-07-02] MEDS: PANTOPRAZOLE 40 MG/10 ML VIAL INJ IV SCH (22:29)
[2024-07-03] VITALS (105 sets, daily range): BP systolic 80–174; BP diastolic 44–84; PULSE 46–77; RESP 15–24; TEMP 97.3–99.9; O2SAT 96–100
[2024-07-03] MEDS: ISOPROTERENOL HCL INJECTION 1 MG in D5W 5% 250 ML IV SCH (00:15)
[2024-07-03] MEDS ORDERED: ATROPINE SULF 1 MG/10ml SYR IV PRN (01:00)
[2024-07-03 04:22] LABS: Hematocrit 31.4 % (41.0-53.0); Hemoglobin 10.1 g/dL (13.5-17.5); Mean Corpuscular Hemoglobin 28.2 pg (28.0-32.0); Mean Corpuscular Hgb Conc. 32.3 g/dL (32.0-36.0); Mean Corpuscular Volume 87.4 fL (80.0-100.0); Platelet Count (auto) 228 10^3/uL (140-450); Red Blood Cells 3.59 10^6/uL (4.5-5.90); Red Cell Distribution Width 16.3 % (11.8-14.3); White Blood Cell 18.9 10^3/uL (4.4-10.8)
[2024-07-03 04:49] LABS: Basophils % (manual) 0 (0.0-2.0); Blast Cells 0; Eosinophils % (manual) 0 (0-7); Metamyelocytes % 0; Myelocytes % 0; Promyelocytes % 0; Reactive Lymphocytes 0
[2024-07-03 05:55] LABS: Anisocytosis Slight; Band Neutrophils % (manual) 21; Large Platelets FEW; Lymphocytes % (manual) 1 (10.0-50.0); Monocytes % (manual) 3 (0-12); Platelet Estimate Adequate
[2024-07-03 06:36] LABS: Chloride 106 mmol/L (98-107); Potassium 4.6 mmol/L (3.5-5.1); Sodium 138 mmol/L (136-145)
[2024-07-03 06:37] LABS: Anion Gap 14 (5-15); Calcium 8.1 mg/dL (8.7-10.4); Carbon Dioxide 18 mmol/L (20-30)
[2024-07-03 06:42] LABS: BUN/Creatinine Ratio 14.3 (10.0-20.0); Glucose 268 mg/dL (74-106)
[2024-07-03 06:43] LABS: Blood Urea Nitrogen 42 mg/dL (9-23)
[2024-07-03 08:10] LABS: Base Excess -7.5 mmol/L (-2.0-3.0)
[2024-07-03] MEDS ORDERED: AZITHROMYCIN 500MG/ 250ML 250 ML IV SCH (10:00)
[2024-07-03] MEDS: MICAFUNGIN SODIUM 100 MG in SODIUM CHL 0.9% 100 ML IV SCH (10:24)
[2024-07-03 12:00] LABS: Thyroid Stimulating Hormone 1.07 uIU/mL (0.55-4.78)
[2024-07-03 12:26] LABS: Alanine Aminotransferase 56 U/L (7-40); Alkaline Phosphatase 73 U/L (46-116); Anion Gap 10 (5-15); Aspartate Aminotransferase 277 U/L (13-40); BUN/Creatinine Ratio 15.6 (10.0-20.0); Bilirubin, Total 0.3 mg/dL (0.2-1.0); Blood Urea Nitrogen 45 mg/dL (9-23); Calcium 7.8 mg/dL (8.7-10.4); Carbon Dioxide 21 mmol/L (20-30); Chloride 108 mmol/L (98-107); Glucose 223 mg/dL (74-106); Sodium 139 mmol/L (136-145); Total Protein 4.9 g/dL (5.7-8.2)
[2024-07-03] MEDS: ACCU-CHEK COMFORT CURVE STRIP VI SCH ×2 (12:26→17:58)
[2024-07-03] MEDS: CALCIUM GLUC 1,000mg/50ml-NS 50 ML IV ONE (12:37)
[2024-07-03 13:12] LABS: Folate (Folic Acid) 11.98 ng/mL (>5.38)
[2024-07-03] MEDS ORDERED: DEXTROSE (50%) 50ML SYRG IV SCH ×3 (15:00→18:00)
[2024-07-03] MEDS: DOPamine 1600MCG/ML D5W 250 ML IV SCH (16:19)
[2024-07-03] MEDS ORDERED: ACETAMINOPHEN 650 mg PER 20.3 mL UD GT PRN (16:45)
[2024-07-03] MEDS ORDERED: ACETAMINOPHEN 650 MG RECT SUPP PR PRN ×2 (16:45)
[2024-07-03] MEDS ORDERED: CLINIMIX PER PHARMACY 0 ML IV SCH (16:45)
[2024-07-03] MEDS ORDERED: HEPARIN DRIP/D5W 100UNITS/ML 250 ML IV SCH (16:45)
[2024-07-03] MEDS ORDERED: ACCU-CHEK COMFORT CURVE STRIP VI SCH ×2 (17:00)
[2024-07-03] MEDS ORDERED: InsuLIN REG 1unit/0.01ml Soln (100units/ml) SC SCH ×2 (17:00)
[2024-07-03] MEDS: ERTAPENEM SOD INJ 0.5 GM in SODIUM CHL 0.9% 50 ML IV ONE (17:20)
[2024-07-03] MEDS: InsuLIN REG 1unit/0.01ml Soln (100units/ml) SC SCH (17:58)
[2024-07-03 18:20] LABS: Basophils # (auto) 0 10 ^3/uL (0-0.2); Basophils % (auto) 0.1 % (0.0-2.0); Eosinophils # (auto) 0 10 ^3/uL (0-0.8); Hematocrit 28.1 % (41.0-53.0); Hemoglobin 9.1 g/dL (13.5-17.5); Lymphocytes # (auto) 0.3 10 ^3/uL (0.4-5.4); Mean Corpuscular Hgb Conc. 32.5 g/dL (32.0-36.0); Monocytes # (auto) 0.6 10 ^3/uL (0-1.3); Monocytes % (auto) 3.7 % (0.0-12.0); Neutrophils # (auto) 14.7 10 ^3/uL (1.6-8.6); Neutrophils % (auto) 94.2 % (37.0-80.0); Platelet Count (auto) 170 10^3/uL (140-450); Red Blood Cells 3.26 10^6/uL (4.5-5.90); White Blood Cell 15.6 10^3/uL (4.4-10.8)
[2024-07-03 18:45] LABS: INR 1.03 (0.9-1.15); Partial Thromboplastin Time 23.4 SEC (24.5-34.5); Prothrombin Time 10.9 sec (9.3-11.8)
[2024-07-03] MEDS: HEPARIN DRIP/D5W 100UNITS/ML 250 ML IV SCH (20:00)
[2024-07-03] MEDS: AMINO ACID INFUSION IN D10W 1,000 ML IV SCH (20:17)
[2024-07-04] VITALS (106 sets, daily range): BP systolic 92–160; BP diastolic 53–90; PULSE 43–97; RESP 16–25; TEMP 97.2–99.1; O2SAT 95–100
[2024-07-04 02:57] LABS: INR 1.06 (0.9-1.15); Partial Thromboplastin Time 41.3 SEC (24.5-34.5); Prothrombin Time 11.2 sec (9.3-11.8)
[2024-07-04] MEDS: HEPARIN DRIP/D5W 100UNITS/ML 250 ML IV SCH ×3 (03:30→19:30)
[2024-07-04 04:32] LABS: Alanine Aminotransferase 50 U/L (7-40); Albumin 2.8 g/dL (3.2-4.8); Alkaline Phosphatase 73 U/L (46-116); Anion Gap 10 (5-15); Aspartate Aminotransferase 185 U/L (13-40); BUN/Creatinine Ratio 16.5 (10.0-20.0); Bilirubin, Total 0.3 mg/dL (0.2-1.0); Blood Urea Nitrogen 43 mg/dL (9-23); Calcium 8.4 mg/dL (8.7-10.4); Carbon Dioxide 20 mmol/L (20-30); Chloride 110 mmol/L (98-107); Glucose 203 mg/dL (74-106); Potassium 3.7 mmol/L (3.5-5.1); Sodium 140 mmol/L (136-145); Total Protein 4.8 g/dL (5.7-8.2)
[2024-07-04 04:34] LABS: Basophils # (auto) 0 10 ^3/uL (0-0.2); Basophils % (auto) 0.1 % (0.0-2.0); Eosinophils # (auto) 0 10 ^3/uL (0-0.8); Eosinophils % (auto) 0.1 % (0.0-7.0); Hematocrit 28.7 % (41.0-53.0); Hemoglobin 9.5 g/dL (13.5-17.5); Lymphocytes # (auto) 0.6 10 ^3/uL (0.4-5.4); Lymphocytes % (auto) 4.8 % (10.0-50.0); Mean Corpuscular Hemoglobin 28.8 pg (28.0-32.0); Mean Corpuscular Hgb Conc. 33.1 g/dL (32.0-36.0); Mean Corpuscular Volume 86.9 fL (80.0-100.0); Monocytes # (auto) 0.5 10 ^3/uL (0-1.3); Monocytes % (auto) 3.8 % (0.0-12.0); Neutrophils # (auto) 12.1 10 ^3/uL (1.6-8.6); Neutrophils % (auto) 91.2 % (37.0-80.0); Platelet Count (auto) 134 10^3/uL (140-450); Red Cell Distribution Width 16.2 % (11.8-14.3); White Blood Cell 13.3 10^3/uL (4.4-10.8)
[2024-07-04 07:15] LABS: Base Excess -5.7 mmol/L (-2.0-3.0)
[2024-07-04] MEDS: ERTAPENEM SOD INJ 0.5 GM in SODIUM CHL 0.9% 50 ML IV SCH (09:39)
[2024-07-04 09:51] LABS: INR 1.07 (0.9-1.15); Prothrombin Time 11.3 sec (9.3-11.8)
[2024-07-04 09:57] LABS: Partial Thromboplastin Time 97.7 SEC (24.5-34.5)
[2024-07-04] MEDS: VANCOMYCIN 500 MG in D5W 5% 100 ML IV ONE (13:28)
[2024-07-04 17:45] LABS: INR 1.04 (0.9-1.15); Partial Thromboplastin Time 42.2 SEC (24.5-34.5)
[2024-07-05] VITALS (106 sets, daily range): BP systolic 82–170; BP diastolic 48–96; PULSE 51–100; RESP 14–32; TEMP 98.2–99.7; O2SAT 91–100
[2024-07-05 01:20] LABS: INR 1.04 (0.9-1.15); Partial Thromboplastin Time 37.6 SEC (24.5-34.5)
[2024-07-05] MEDS: HEPARIN DRIP/D5W 100UNITS/ML 250 ML IV SCH ×3 (02:15→21:30)
[2024-07-05 05:03] LABS: Basophils # (auto) 0 10 ^3/uL (0-0.2); Basophils % (auto) 0.2 % (0.0-2.0); Eosinophils # (auto) 0 10 ^3/uL (0-0.8); Eosinophils % (auto) 0.5 % (0.0-7.0); Hematocrit 30.2 % (41.0-53.0); Hemoglobin 10.1 g/dL (13.5-17.5); Lymphocytes # (auto) 0.6 10 ^3/uL (0.4-5.4); Mean Corpuscular Hemoglobin 28.7 pg (28.0-32.0); Mean Corpuscular Hgb Conc. 33.4 g/dL (32.0-36.0); Mean Corpuscular Volume 85.8 fL (80.0-100.0); Monocytes # (auto) 0.5 10 ^3/uL (0-1.3); Monocytes % (auto) 5.8 % (0.0-12.0); Neutrophils # (auto) 8.3 10 ^3/uL (1.6-8.6); Neutrophils % (auto) 87.5 % (37.0-80.0); Platelet Count (auto) 133 10^3/uL (140-450); Red Blood Cells 3.52 10^6/uL (4.5-5.90); Red Cell Distribution Width 15.8 % (11.8-14.3); White Blood Cell 9.5 10^3/uL (4.4-10.8)
[2024-07-05 05:24] LABS: Alanine Aminotransferase 39 U/L (7-40); Albumin 2.9 g/dL (3.2-4.8); Alkaline Phosphatase 74 U/L (46-116); Anion Gap 6 (5-15); Aspartate Aminotransferase 66 U/L (13-40); Bilirubin, Total 0.3 mg/dL (0.2-1.0); Blood Urea Nitrogen 52 mg/dL (9-23); Calcium 8.2 mg/dL (8.7-10.4); Carbon Dioxide 23 mmol/L (20-30); Chloride 112 mmol/L (98-107); Glucose 218 mg/dL (74-106); Magnesium 1.8 mg/dL (1.6-2.6); Phosphorus 2.2 mg/dL (2.4-5.1); Potassium 3.2 mmol/L (3.5-5.1); Sodium 141 mmol/L (136-145); Total Protein 4.8 g/dL (5.7-8.2)
[2024-07-05] MEDS ORDERED: POTASSIUM CHL 20MEQ/100ML 100 ML IV ONE (08:00)
[2024-07-05] MEDS: POTASSIUM CHL 20MEQ/100ML 100 ML IV SCH (08:10)
[2024-07-05 08:43] LABS: Base Excess -3.3 mmol/L (-2.0-3.0)
[2024-07-05] MEDS ORDERED: POTASSIUM CHL 20MEQ/100ML 100 ML IV SCH (08:45)
[2024-07-05] MEDS: MAGNESIUM SULFATE 1GM/100ML 100 ML IV ONE ×2 (10:16→14:03)
[2024-07-05] MEDS: IRON SUCROSE COMPLEX 100 ML IV SCH (12:04)
[2024-07-05 12:18] LABS: INR 1.07 (0.9-1.15); Partial Thromboplastin Time 48.4 SEC (24.5-34.5); Prothrombin Time 11.3 sec (9.3-11.8)
[2024-07-05] MEDS: POTASSIUM PHOSPHATE 22 MEQ in SODIUM CHL 0.9% 100 ML IV ONE (14:00)
[2024-07-05 21:06] LABS: INR 1.07 (0.9-1.15); Prothrombin Time 11.3 sec (9.3-11.8)
[2024-07-05 21:08] LABS: Partial Thromboplastin Time 76.5 SEC (24.5-34.5)
[2024-07-05] MEDS ORDERED: HEPARIN DRIP/D5W 100UNITS/ML 250 ML IV SCH (21:30)
[2024-07-06] VITALS (85 sets, daily range): BP systolic 88–164; BP diastolic 47–86; PULSE 59–160; RESP 19–80; TEMP 93.4–100.2; O2SAT 94–100
[2024-07-06 04:22] LABS: Basophils # (auto) 0 10 ^3/uL (0-0.2); Basophils % (auto) 0.2 % (0.0-2.0); Eosinophils # (auto) 0.1 10 ^3/uL (0-0.8); Eosinophils % (auto) 0.7 % (0.0-7.0); Hematocrit 34.4 % (41.0-53.0); Hemoglobin 11.5 g/dL (13.5-17.5); Lymphocytes # (auto) 0.8 10 ^3/uL (0.4-5.4); Lymphocytes % (auto) 8.9 % (10.0-50.0); Mean Corpuscular Hemoglobin 28.8 pg (28.0-32.0); Mean Corpuscular Hgb Conc. 33.4 g/dL (32.0-36.0); Mean Corpuscular Volume 86.2 fL (80.0-100.0); Monocytes # (auto) 0.9 10 ^3/uL (0-1.3); Monocytes % (auto) 10.7 % (0.0-12.0); Neutrophils # (auto) 6.8 10 ^3/uL (1.6-8.6); Neutrophils % (auto) 79.5 % (37.0-80.0); Nucleated Red Blood Cells % 0.1 %; Platelet Count (auto) 121 10^3/uL (140-450); Red Blood Cells 3.99 10^6/uL (4.5-5.90); Red Cell Distribution Width 15.9 % (11.8-14.3); White Blood Cell 8.5 10^3/uL (4.4-10.8)
[2024-07-06 04:43] LABS: Alanine Aminotransferase 35 U/L (7-40); Albumin 3.1 g/dL (3.2-4.8); Alkaline Phosphatase 88 U/L (46-116); Anion Gap 9 (5-15); Aspartate Aminotransferase 45 U/L (13-40); BUN/Creatinine Ratio 21.2 (10.0-20.0); Bilirubin, Total 0.3 mg/dL (0.2-1.0); Calcium 8.7 mg/dL (8.7-10.4); Carbon Dioxide 21 mmol/L (20-30); Chloride 112 mmol/L (98-107); Glucose 209 mg/dL (74-106); Magnesium 2.3 mg/dL (1.6-2.6); Potassium 3.6 mmol/L (3.5-5.1); Sodium 142 mmol/L (136-145)
[2024-07-06 04:44] LABS: Total Protein 5.2 g/dL (5.7-8.2)
[2024-07-06 04:48] LABS: Blood Urea Nitrogen 41 mg/dL (9-23); INR 1.07 (0.9-1.15); Partial Thromboplastin Time 52.4 SEC (24.5-34.5); Prothrombin Time 11.3 sec (9.3-11.8)
[2024-07-06 07:18] LABS: Base Excess -4.2 mmol/L (-2.0-3.0)
[2024-07-06] MEDS: ANGIOMAX 250 MG VIAL IV ONE (07:45)
[2024-07-06] MEDS: SODIUM CHL 0.9% 0 ML ONE (07:45)
[2024-07-06] MEDS: LIDOCAINE 2%HCL (LOCAL ANESTH.) INJ 20ML MDV ONE (07:46)
[2024-07-06 10:23] LABS: Hematocrit 30.1 % (41.0-53.0)
[2024-07-06] MEDS: LIDOCAINE 1% (LOCAL ANESTH.) PF 5ml SDV ID ONE (15:45)
[2024-07-06] MEDS: ATORVASTATIN 20 MG TAB PO SCH (22:22)
[2024-07-06] MEDS: SODIUM CHLOR 0.9% PF (SALINE LOCK) 10ML VIAL/SYR IV SCH (22:23)
[2024-07-06] MEDS: Nepro With Carb Steady 1 Liter Bottle GT SCH (22:38)
[2024-07-07] VITALS (99 sets, daily range): BP systolic 88–154; BP diastolic 46–87; PULSE 42–111; RESP 10–31; TEMP 98.8–99.7; O2SAT 54–100
[2024-07-07 04:35] LABS: Basophils # (auto) 0 10 ^3/uL (0-0.2); Basophils % (auto) 0.1 % (0.0-2.0); Eosinophils # (auto) 0.1 10 ^3/uL (0-0.8); Eosinophils % (auto) 0.9 % (0.0-7.0); Hematocrit 29.3 % (41.0-53.0); Hemoglobin 9.7 g/dL (13.5-17.5); Lymphocytes # (auto) 0.6 10 ^3/uL (0.4-5.4); Lymphocytes % (auto) 8.3 % (10.0-50.0); Mean Corpuscular Hemoglobin 28.7 pg (28.0-32.0); Mean Corpuscular Hgb Conc. 33.2 g/dL (32.0-36.0); Mean Corpuscular Volume 86.5 fL (80.0-100.0); Monocytes # (auto) 0.6 10 ^3/uL (0-1.3); Neutrophils # (auto) 5.5 10 ^3/uL (1.6-8.6); Neutrophils % (auto) 81.7 % (37.0-80.0); Nucleated Red Blood Cells % 0.1 %; Platelet Count (auto) 120 10^3/uL (140-450); Red Blood Cells 3.38 10^6/uL (4.5-5.90); Red Cell Distribution Width 16.1 % (11.8-14.3); White Blood Cell 6.7 10^3/uL (4.4-10.8)
[2024-07-07 04:59] LABS: Alkaline Phosphatase 86 U/L (46-116)
[2024-07-07 05:00] LABS: Alanine Aminotransferase 27 U/L (7-40); Anion Gap 9 (5-15); Aspartate Aminotransferase 27 U/L (13-40); Bilirubin, Total 0.3 mg/dL (0.2-1.0); Blood Urea Nitrogen 41 mg/dL (9-23); Calcium 8.9 mg/dL (8.7-10.4); Carbon Dioxide 25 mmol/L (20-31); Chloride 113 mmol/L (98-107); Glucose 189 mg/dL (74-106); Magnesium 2.2 mg/dL (1.6-2.6); Potassium 3.3 mmol/L (3.5-5.1); Total Protein 5.2 g/dL (5.7-8.2)
[2024-07-07 05:01] LABS: Sodium 147 mmol/L (136-145)
[2024-07-07] MEDS: POTASSIUM CHL 20MEQ/100ML 100 ML IV ONE (06:34)
[2024-07-07 06:52] LABS: Base Excess -1.1 mmol/L (-2.0-3.0)
[2024-07-07] MEDS: ASPirin 81 mg TAB PO SCH (09:34)
[2024-07-07] MEDS: CLOPIDOGREL BISULFATE 75 MG TAB PO SCH (09:38)
[2024-07-07] MEDS: SOD CHL 0.45% 1,000 ML IV ONE (11:55)
[2024-07-08] VITALS (103 sets, daily range): BP systolic 97–166; BP diastolic 49–135; PULSE 47–103; RESP 12–34; TEMP 99–99.7; O2SAT 94–100
[2024-07-08 05:02] LABS: Basophils # (auto) 0 10 ^3/uL (0-0.2); Basophils % (auto) 0.1 % (0.0-2.0); Eosinophils # (auto) 0.1 10 ^3/uL (0-0.8); Eosinophils % (auto) 1.1 % (0.0-7.0); Hematocrit 27.7 % (41.0-53.0); Hemoglobin 9.4 g/dL (13.5-17.5); Lymphocytes # (auto) 0.7 10 ^3/uL (0.4-5.4); Lymphocytes % (auto) 10.1 % (10.0-50.0); Mean Corpuscular Hemoglobin 28.9 pg (28.0-32.0); Mean Corpuscular Volume 85.1 fL (80.0-100.0); Monocytes # (auto) 0.5 10 ^3/uL (0-1.3); Monocytes % (auto) 7.6 % (0.0-12.0); Neutrophils # (auto) 5.5 10 ^3/uL (1.6-8.6); Neutrophils % (auto) 81.1 % (37.0-80.0); Platelet Count (auto) 142 10^3/uL (140-450); Red Blood Cells 3.26 10^6/uL (4.5-5.90); Red Cell Distribution Width 15.5 % (11.8-14.3); White Blood Cell 6.8 10^3/uL (4.4-10.8)
[2024-07-08 05:18] LABS: Alanine Aminotransferase 19 U/L (7-40); Albumin 3.1 g/dL (3.2-4.8); Alkaline Phosphatase 82 U/L (46-116); Anion Gap 11 (5-15); Aspartate Aminotransferase 22 U/L (13-40); BUN/Creatinine Ratio 23.9 (10.0-20.0); Bilirubin, Total 0.4 mg/dL (0.2-1.0); Blood Urea Nitrogen 38 mg/dL (9-23); Calcium 8.7 mg/dL (8.7-10.4); Carbon Dioxide 24 mmol/L (20-31); Chloride 113 mmol/L (98-107); Glucose 137 mg/dL (74-106); Sodium 148 mmol/L (136-145); Total Protein 5.2 g/dL (5.7-8.2)
[2024-07-08] MEDS: POTASSIUM CHL 20MEQ/100ML 100 ML IV SCH (08:48)
[2024-07-08 12:26] LABS: Base Excess -2.6 mmol/L (-2.0-3.0)
[2024-07-09] VITALS (37 sets, daily range): BP systolic 115–162; BP diastolic 68–98; PULSE 56–103; RESP 13–30; TEMP 98.2–99.5; O2SAT 91–100
[2024-07-09] MEDS: MORPHINE SULFATE 4 MG/ML SYR/VIAL IV PRN (04:57)
[2024-07-09 05:15] LABS: Anion Gap 12 (5-15); Carbon Dioxide 24 mmol/L (20-31); Chloride 113 mmol/L (98-107); Potassium 3.3 mmol/L (3.5-5.1); Sodium 149 mmol/L (136-145)
[2024-07-09 05:17] LABS: Calcium 8.7 mg/dL (8.7-10.4)
[2024-07-09 05:21] LABS: BUN/Creatinine Ratio 22.4 (10.0-20.0); Blood Urea Nitrogen 34 mg/dL (9-23); Glucose 139 mg/dL (74-106)
[2024-07-09] MEDS: POTASSIUM CHL 20MEQ/100ML 100 ML IV ONE ×2 (08:09→11:40)
[2024-07-09] MEDS: LABETALOL HCL 20 MG/4 ML VL IV PRN (16:26)
[2024-07-10] VITALS (36 sets, daily range): BP systolic 122–159; BP diastolic 63–81; PULSE 72–100; RESP 14–25; TEMP 99–99.5; O2SAT 93–100
[2024-07-10 05:16] LABS: Basophils # (auto) 0 10 ^3/uL (0-0.2); Basophils % (auto) 0.1 % (0.0-2.0); Eosinophils # (auto) 0.1 10 ^3/uL (0-0.8); Eosinophils % (auto) 1.3 % (0.0-7.0); Hematocrit 30.8 % (41.0-53.0); Hemoglobin 10.4 g/dL (13.5-17.5); Lymphocytes # (auto) 0.7 10 ^3/uL (0.4-5.4); Lymphocytes % (auto) 6.4 % (10.0-50.0); Mean Corpuscular Hemoglobin 28.8 pg (28.0-32.0); Mean Corpuscular Hgb Conc. 33.7 g/dL (32.0-36.0); Mean Corpuscular Volume 85.5 fL (80.0-100.0); Monocytes # (auto) 0.5 10 ^3/uL (0-1.3); Neutrophils # (auto) 9.1 10 ^3/uL (1.6-8.6); Neutrophils % (auto) 87.2 % (37.0-80.0); Platelet Count (auto) 231 10^3/uL (140-450); Red Blood Cells 3.61 10^6/uL (4.5-5.90); Red Cell Distribution Width 15.8 % (11.8-14.3); White Blood Cell 10.4 10^3/uL (4.4-10.8)
[2024-07-10 05:39] LABS: Alanine Aminotransferase 16 U/L (7-40); Albumin 3.2 g/dL (3.2-4.8); Alkaline Phosphatase 92 U/L (46-116); Anion Gap 10 (5-15); Aspartate Aminotransferase 19 U/L (13-40); BUN/Creatinine Ratio 23.4 (10.0-20.0); Bilirubin, Total 0.3 mg/dL (0.2-1.0); Blood Urea Nitrogen 34 mg/dL (9-23); Calcium 8.5 mg/dL (8.7-10.4); Carbon Dioxide 27 mmol/L (20-31); Chloride 113 mmol/L (98-107); Phosphorus 2.8 mg/dL (2.4-5.1); Potassium 3.1 mmol/L (3.5-5.1); Sodium 150 mmol/L (136-145); Total Protein 5.4 g/dL (5.7-8.2)
[2024-07-10 05:46] LABS: Glucose 239 mg/dL (74-106)
[2024-07-10] MEDS: POTASSIUM CHL 20MEQ/100ML 100 ML IV SCH (08:39)
[2024-07-10 08:41] LABS: Base Excess 4.4 mmol/L (-2.0-3.0)
[2024-07-10] MEDS: SOD CHL 0.45% 1,000 ML IV SCH (14:26)
[2024-07-10] MEDS: FREE WATER GT SCH (18:05)
[2024-07-11] VITALS (36 sets, daily range): BP systolic 126–156; BP diastolic 51–110; PULSE 46–92; RESP 13–25; TEMP 97.9–99.3; O2SAT 91–100
[2024-07-11 05:30] LABS: Basophils # (auto) 0 10 ^3/uL (0-0.2); Basophils % (auto) 0.3 % (0.0-2.0); Eosinophils # (auto) 0.2 10 ^3/uL (0-0.8); Eosinophils % (auto) 1.4 % (0.0-7.0); Hematocrit 30.9 % (41.0-53.0); Hemoglobin 10.2 g/dL (13.5-17.5); Lymphocytes # (auto) 0.8 10 ^3/uL (0.4-5.4); Lymphocytes % (auto) 6.2 % (10.0-50.0); Mean Corpuscular Hemoglobin 28.6 pg (28.0-32.0); Mean Corpuscular Volume 86.6 fL (80.0-100.0); Monocytes # (auto) 0.7 10 ^3/uL (0-1.3); Monocytes % (auto) 5.1 % (0.0-12.0); Neutrophils # (auto) 11.3 10 ^3/uL (1.6-8.6); Platelet Count (auto) 247 10^3/uL (140-450); Red Blood Cells 3.57 10^6/uL (4.5-5.90); Red Cell Distribution Width 15.9 % (11.8-14.3); White Blood Cell 12.9 10^3/uL (4.4-10.8)
[2024-07-11 05:37] LABS: Alanine Aminotransferase 12 U/L (7-40); Albumin 3.1 g/dL (3.2-4.8); Alkaline Phosphatase 86 U/L (46-116); Anion Gap 6 (5-15); Aspartate Aminotransferase 17 U/L (13-40); BUN/Creatinine Ratio 19.9 (10.0-20.0); Blood Urea Nitrogen 29 mg/dL (9-23); Calcium 8.6 mg/dL (8.7-10.4); Carbon Dioxide 29 mmol/L (20-31); Chloride 115 mmol/L (98-107); Glucose 196 mg/dL (74-106); Magnesium 2.1 mg/dL (1.6-2.6); Phosphorus 2.3 mg/dL (2.4-5.1); Potassium 3.1 mmol/L (3.5-5.1); Sodium 150 mmol/L (136-145)
[2024-07-11 05:38] LABS: Bilirubin, Total 0.3 mg/dL (0.2-1.0); Total Protein 5.4 g/dL (5.7-8.2)
[2024-07-11] MEDS: POTASSIUM CHL 20MEQ/100ML 100 ML IV ONE ×2 (07:45→09:51)
[2024-07-11] MEDS ORDERED: POTASSIUM CHL 20 Meq TABLET PO ONE (07:45)
[2024-07-11] MEDS ORDERED: POTASSIUM CHL 20MEQ/100ML 100 ML IV ONE (09:00)
[2024-07-11] MEDS: LACTULOSE 20Gm/30ML SOLN PO PRN (11:23)
[2024-07-11] MEDS: FREE WATER GT SCH (17:59)
[2024-07-12] VITALS (57 sets, daily range): BP systolic 121–141; BP diastolic 52–94; PULSE 46–97; RESP 15–26; TEMP 97.3–99.1; O2SAT 92–100
[2024-07-12 05:04] LABS: Basophils # (auto) 0 10 ^3/uL (0-0.2); Basophils % (auto) 0.4 % (0.0-2.0); Eosinophils # (auto) 0.2 10 ^3/uL (0-0.8); Eosinophils % (auto) 1.6 % (0.0-7.0); Hematocrit 29.3 % (41.0-53.0); Hemoglobin 9.7 g/dL (13.5-17.5); Lymphocytes # (auto) 0.8 10 ^3/uL (0.4-5.4); Lymphocytes % (auto) 5.9 % (10.0-50.0); Mean Corpuscular Hemoglobin 28.7 pg (28.0-32.0); Mean Corpuscular Volume 87.1 fL (80.0-100.0); Monocytes # (auto) 0.4 10 ^3/uL (0-1.3); Monocytes % (auto) 3.3 % (0.0-12.0); Neutrophils # (auto) 11.9 10 ^3/uL (1.6-8.6); Neutrophils % (auto) 88.8 % (37.0-80.0); Nucleated Red Blood Cells % 0.1 %; Platelet Count (auto) 243 10^3/uL (140-450); Red Blood Cells 3.37 10^6/uL (4.5-5.90); Red Cell Distribution Width 16.1 % (11.8-14.3); White Blood Cell 13.4 10^3/uL (4.4-10.8)
[2024-07-12 05:27] LABS: Alanine Aminotransferase 12 U/L (7-40); Albumin 2.9 g/dL (3.2-4.8); Alkaline Phosphatase 82 U/L (46-116); Anion Gap 7 (5-15); Aspartate Aminotransferase 16 U/L (13-40); BUN/Creatinine Ratio 18.9 (10.0-20.0); Bilirubin, Total 0.2 mg/dL (0.2-1.0); Blood Urea Nitrogen 27 mg/dL (9-23); Calcium 8.2 mg/dL (8.7-10.4); Carbon Dioxide 29 mmol/L (20-31); Chloride 114 mmol/L (98-107); Glucose 211 mg/dL (74-106); Magnesium 1.9 mg/dL (1.6-2.6); Sodium 150 mmol/L (136-145); Total Protein 5.1 g/dL (5.7-8.2)
[2024-07-12] MEDS: MAGNESIUM SULFATE 1GM/100ML 100 ML IV ONE (06:51)
[2024-07-12] MEDS: POTASSIUM CHL 20MEQ/100ML 100 ML IV SCH (06:52)
[2024-07-12] MEDS: NICOTINE 14 MG/24HR TOPICAL PATCH TD SCH (09:57)
[2024-07-12] MEDS: D5W 5% 1,000 ML IV SCH (11:45)
[2024-07-13] VITALS (16 sets, daily range): BP systolic 106–149; BP diastolic 55–66; PULSE 63–76; RESP 16–21; TEMP 97.4–98.6; O2SAT 92–100
[2024-07-13] MEDS: IPRATROPIUM BROM 0.5 MG/2.5ML INH SOL NEB SCH (07:26)
[2024-07-13 08:17] LABS: Basophils # (auto) 0 10 ^3/uL (0-0.2); Basophils % (auto) 0.2 % (0.0-2.0); Eosinophils # (auto) 0.2 10 ^3/uL (0-0.8); Eosinophils % (auto) 1.1 % (0.0-7.0); Hematocrit 26.4 % (41.0-53.0); Hemoglobin 8.6 g/dL (13.5-17.5); Lymphocytes # (auto) 1.2 10 ^3/uL (0.4-5.4); Lymphocytes % (auto) 8.1 % (10.0-50.0); Mean Corpuscular Hemoglobin 28.8 pg (28.0-32.0); Mean Corpuscular Hgb Conc. 32.7 g/dL (32.0-36.0); Mean Corpuscular Volume 88.3 fL (80.0-100.0); Monocytes # (auto) 0.5 10 ^3/uL (0-1.3); Monocytes % (auto) 3.4 % (0.0-12.0); Neutrophils # (auto) 12.5 10 ^3/uL (1.6-8.6); Neutrophils % (auto) 87.2 % (37.0-80.0); Platelet Count (auto) 243 10^3/uL (140-450); Red Blood Cells 2.99 10^6/uL (4.5-5.90); Red Cell Distribution Width 16.5 % (11.8-14.3); White Blood Cell 14.3 10^3/uL (4.4-10.8)
[2024-07-13 08:22] LABS: Chloride 103 mmol/L (98-107); Potassium 3.2 mmol/L (3.5-5.1)
[2024-07-13 08:23] LABS: Anion Gap 4 (5-15); Carbon Dioxide 28 mmol/L (20-31)
[2024-07-13 08:24] LABS: Calcium 7.5 mg/dL (8.7-10.4); Sodium 135 mmol/L (136-145)
[2024-07-13 08:29] LABS: BUN/Creatinine Ratio 19.5 (10.0-20.0); Blood Urea Nitrogen 26 mg/dL (9-23); Magnesium 1.8 mg/dL (1.6-2.6)
[2024-07-13 08:30] LABS: Glucose 349 mg/dL (74-106)
[2024-07-13 08:31] LABS: Phosphorus 1.4 mg/dL (2.4-5.1)
[2024-07-13] MEDS: POTASSIUM CHL 20MEQ/100ML 100 ML IV SCH ×2 (12:00→18:01)
[2024-07-13] MEDS: ONDANSETRON HCL 4 MG/2 ML VIAL IV PRN (23:45)
[2024-07-14] VITALS (14 sets, daily range): BP systolic 96–118; BP diastolic 47–60; PULSE 43–82; RESP 16–20; TEMP 97.7–99.4; O2SAT 90–100
[2024-07-14] MEDS: PANTOPRAZOLE 40 MG TAB PO SCH (06:20)
[2024-07-14 08:54] LABS: Anion Gap 6 (5-15); Carbon Dioxide 28 mmol/L (20-31); Chloride 108 mmol/L (98-107); Potassium 3.7 mmol/L (3.5-5.1); Sodium 142 mmol/L (136-145)
[2024-07-14 08:56] LABS: Basophils # (auto) 0 10 ^3/uL (0-0.2); Basophils % (auto) 0.4 % (0.0-2.0); Eosinophils # (auto) 0.2 10 ^3/uL (0-0.8); Eosinophils % (auto) 1.5 % (0.0-7.0); Hematocrit 28.7 % (41.0-53.0); Hemoglobin 9.6 g/dL (13.5-17.5); Lymphocytes # (auto) 1.1 10 ^3/uL (0.4-5.4); Lymphocytes % (auto) 9.1 % (10.0-50.0); Mean Corpuscular Hgb Conc. 33.2 g/dL (32.0-36.0); Mean Corpuscular Volume 87.2 fL (80.0-100.0); Monocytes # (auto) 0.4 10 ^3/uL (0-1.3); Monocytes % (auto) 3.2 % (0.0-12.0); Neutrophils # (auto) 10.6 10 ^3/uL (1.6-8.6); Neutrophils % (auto) 85.8 % (37.0-80.0); Platelet Count (auto) 282 10^3/uL (140-450); Red Cell Distribution Width 15.9 % (11.8-14.3); White Blood Cell 12.3 10^3/uL (4.4-10.8)
[2024-07-14 09:00] LABS: BUN/Creatinine Ratio 18.3 (10.0-20.0); Blood Urea Nitrogen 26 mg/dL (9-23); Magnesium 1.8 mg/dL (1.6-2.6)
[2024-07-14 09:08] LABS: Glucose 126 mg/dL (74-106)
[2024-07-14] MEDS: ERTAPENEM SOD INJ 1 GM in SODIUM CHL 0.9% 50 ML IV SCH (10:27)
[2024-07-14] MEDS ORDERED: CLOP75TA70 PO (10:47)
[2024-07-14] MEDS ORDERED: APIX2.5T PO (10:47)
[2024-07-14] MEDS: DEXTROSE (50%) 50ML SYRG IV ONE (11:45)
[2024-07-14] MEDS: ACCU-CHEK COMFORT CURVE STRIP VI ONE (12:39)
[2024-07-14] MEDS: InsuLIN REG 1unit/0.01ml Soln (100units/ml) SC ONE (12:44)
[2024-07-15] VITALS (11 sets, daily range): BP systolic 127–140; BP diastolic 61–92; PULSE 46–90; RESP 16–21; TEMP 98.1–98.8; O2SAT 92–100
[2024-07-15 06:56] LABS: Anion Gap 6 (5-15); Carbon Dioxide 27 mmol/L (20-31); Chloride 108 mmol/L (98-107); Potassium 2.9 mmol/L (3.5-5.1); Sodium 141 mmol/L (136-145)
[2024-07-15 06:57] LABS: Calcium 7.8 mg/dL (8.7-10.4)
[2024-07-15 07:01] LABS: Glucose 168 mg/dL (74-106)
[2024-07-15 07:02] LABS: Blood Urea Nitrogen 23 mg/dL (9-23)
[2024-07-15 07:14] LABS: BUN/Creatinine Ratio 16.7 (10.0-20.0)
[2024-07-15] MEDS: POTASSIUM CHL 20 Meq TABLET PO ONE (11:22)
== END 2024-07-15 15:58 | disposition home health service (06) | DRG 870 ==
LOC: EDBD 11:54 → ER 11:54 → TELE 17:23 → ICU WEST 17:44 → DOU IN ICU 07-09 15:52 → TELE-CENTR 07-12 16:55
PROVIDERS: ADMIT Internal Medicine; ATTEND Emergency Medicine
PROC: 5A12012 Performance of Cardiac Output, Single, Manual (ICD-10-PCS; principal; 2024-07-01)
PROC: 5A1955Z Respiratory Ventilation, Greater than 96 Consecutive Hours (ICD-10-PCS; 2024-07-01)
PROC: 0BH17EZ Insertion of Endotracheal Airway into Trachea, Via Natural or Artificial Opening (ICD-10-PCS; 2024-07-01)
PROC: 06HY33Z Insertion of Infusion Device into Lower Vein, Percutaneous Approach (ICD-10-PCS; 2024-07-02)
PROC: B211YZZ Fluoroscopy of Multiple Coronary Arteries using Other Contrast (ICD-10-PCS; 2024-07-06)
PROC: B215YZZ Fluoroscopy of Left Heart using Other Contrast (ICD-10-PCS; 2024-07-06)
PROC: 4A023N7 Measurement of Cardiac Sampling and Pressure, Left Heart, Percutaneous Approach (ICD-10-PCS; 2024-07-06)
PROC: 04HY32Z Insertion of Monitoring Device into Lower Artery, Percutaneous Approach (ICD-10-PCS; 2024-07-06)
PROC: B41FYZZ Fluoroscopy of Right Lower Extremity Arteries using Other Contrast (ICD-10-PCS; 2024-07-06)
PROC: 02HV33Z Insertion of Infusion Device into Superior Vena Cava, Percutaneous Approach (ICD-10-PCS; 2024-07-06)
PROC: B548ZZA Ultrasonography of Superior Vena Cava, Guidance (ICD-10-PCS; 2024-07-06)
DX: A41.59 Other Gram-negative sepsis (principal); I21.19 ST elevation (STEMI) myocardial infarction involving other coronary artery of inferior wall; I46.9 Cardiac arrest, cause unspecified; J96.01 Acute respiratory failure with hypoxia; R57.0 Cardiogenic shock; R65.21 Severe sepsis with septic shock; N17.0 Acute kidney failure with tubular necrosis; K72.00 Acute and subacute hepatic failure without coma; J69.0 Pneumonitis due to inhalation of food and vomit; K29.71 Gastritis, unspecified, with bleeding; K29.81 Duodenitis with bleeding; J15.69 Pneumonia due to other Gram-negative bacteria; J44.0 Chronic obstructive pulmonary disease with (acute) lower respiratory infection; D68.59 Other primary thrombophilia; Z16.12 Extended spectrum beta lactamase (ESBL) resistance; G93.1 Anoxic brain damage, not elsewhere classified; E87.0 Hyperosmolality and hypernatremia; E46 Unspecified protein-calorie malnutrition; I44.2 Atrioventricular block, complete; Z68.43 Body mass index [BMI] 50.0-59.9, adult; E11.649 Type 2 diabetes mellitus with hypoglycemia without coma; E11.65 Type 2 diabetes mellitus with hyperglycemia; E87.6 Hypokalemia; I11.0 Hypertensive heart disease with heart failure; I25.10 Atherosclerotic heart disease of native coronary artery without angina pectoris; I48.0 Paroxysmal atrial fibrillation; K22.70 Barrett's esophagus without dysplasia; D50.0 Iron deficiency anemia secondary to blood loss (chronic); E11.51 Type 2 diabetes mellitus with diabetic peripheral angiopathy without gangrene; E78.5 Hyperlipidemia, unspecified; I50.9 Heart failure, unspecified; D72.829 Elevated white blood cell count, unspecified; K21.9 Gastro-esophageal reflux disease without esophagitis; Z89.612 Acquired absence of left leg above knee; Z89.611 Acquired absence of right leg above knee; I25.2 Old myocardial infarction; Z79.4 Long term (current) use of insulin; Z79.899 Other long term (current) drug therapy; Z86.73 Personal history of transient ischemic attack (TIA), and cerebral infarction without residual deficits; Z91.199 Patient's noncompliance with other medical treatment and regimen due to unspecified reason; Z88.8 Allergy status to other drugs, medicaments and biological substances
CPT/HCPCS: 31500; 36415; 36569; 36600; 70450; 71045; 75710; 80048; 80053; 80061; 80202; 81001; 82306; 82565; 82607; 82728; 82746; 82805; 82962; 83010; 83540; 83550; 83605; 83615; 83735; 83880; 84100; 84132; 84443; 84484; 85007; 85014; 85018; 85025; 85027; 85045; 85610; 85730; 87040; 87070; 87077; 87081; 87086; 87186; 87205; 92610; 93005; 93306; 93458; 94002; 94003; 94640; 97110; 97163; 97530; 99152; 99291; G0378; J0171; J0330; J1335; J1756; J1815; J2248; J2405; J2470; J2543; J2704; J3480; J3490; J7060; Q9967

== ENCOUNTER 2024-07-18 13:39 | Inpatient (IN) | payer OTHER, MEDICARE, MEDICAID ==
[~2024-07-18] VITALS: Ht 165.1 cm; Wt 52.4 kg
[~2024-07-18 13:39] MED LIST changes: +APIX2.5T PO; +ERTA1INJ IJ
[2024-07-18 14:21] LABS: Basophils # (auto) 0.1 10 ^3/uL (0-0.2); Basophils % (auto) 0.9 % (0.0-2.0); Eosinophils # (auto) 0.1 10 ^3/uL (0-0.8); Eosinophils % (auto) 1.6 % (0.0-7.0); Hematocrit 26.7 % (41.0-53.0); Hemoglobin 8.8 g/dL (13.5-17.5); Lymphocytes # (auto) 0.8 10 ^3/uL (0.4-5.4); Lymphocytes % (auto) 12.5 % (10.0-50.0); Mean Corpuscular Hemoglobin 28.6 pg (28.0-32.0); Mean Corpuscular Hgb Conc. 33.1 g/dL (32.0-36.0); Mean Corpuscular Volume 86.4 fL (80.0-100.0); Monocytes # (auto) 0.5 10 ^3/uL (0-1.3); Monocytes % (auto) 7.4 % (0.0-12.0); Neutrophils % (auto) 77.6 % (37.0-80.0); Platelet Count (auto) 318 10^3/uL (140-450); Red Blood Cells 3.09 10^6/uL (4.5-5.90); Red Cell Distribution Width 17.1 % (11.8-14.3); White Blood Cell 6.5 10^3/uL (4.4-10.8)
[2024-07-18 14:24] VITALS: PULSE 78; RESP 22; O2SAT 94
[2024-07-18 14:43] LABS: Alanine Aminotransferase 12 U/L (7-40); Albumin 2.8 g/dL (3.2-4.8); Alkaline Phosphatase 93 U/L (46-116); Anion Gap 10 (5-15); Aspartate Aminotransferase 16 U/L (13-40); BUN/Creatinine Ratio 13.3 (10.0-20.0); Blood Urea Nitrogen 16 mg/dL (9-23); Calcium 7.5 mg/dL (8.7-10.4); Carbon Dioxide 25 mmol/L (20-31); Chloride 105 mmol/L (98-107); Glucose 124 mg/dL (74-106); Potassium 3.3 mmol/L (3.5-5.1); Sodium 140 mmol/L (136-145)
[2024-07-18 14:44] LABS: Bilirubin, Total 0.3 mg/dL (0.2-1.0); Total Protein 4.7 g/dL (5.7-8.2)
[2024-07-18] MEDS ORDERED: MORPHINE SULFATE INJ 2 MG/ml SYRG IV PRN (17:15)
[2024-07-18] MEDS ORDERED: ONDANSETRON HCL 4 MG/2 ML VIAL IV PRN (17:15)
[2024-07-18] MEDS ORDERED: HYDROcodone-ACET 5/325MG TAB PO PRN (17:15)
[2024-07-18] MEDS ORDERED: NITROGLYCERIN 0.4 MG SL TAB SL PRN (17:15)
[2024-07-18] MEDS: FUROSEMIDE 40 MG/4 ML VIAL IV ONE (17:34)
[2024-07-18 19:24] VITALS: PULSE 77; RESP 17; O2SAT 95
[2024-07-18] MEDS: ATORVASTATIN 20 MG TAB PO SCH (22:16)
[2024-07-18] MEDS: ZOLPIDEM TARTRATE 5 MG TAB PO SCH (22:16)
[2024-07-18] MEDS: DULoxetine HCL 30 MG CAP PO SCH (22:16)
[2024-07-18] MEDS: APIXABAN 2.5 MG TAB PO SCH (22:16)
[2024-07-18] MEDS: PANTOPRAZOLE 40 MG TAB PO SCH (22:17)
[2024-07-19] VITALS (11 sets, daily range): BP systolic 119–151; BP diastolic 61–78; PULSE 57–85; RESP 16–20; TEMP 97.8–98.3; O2SAT 92–96
[2024-07-19 06:48] LABS: Chloride 105 mmol/L (98-107); Sodium 140 mmol/L (136-145)
[2024-07-19 06:49] LABS: Anion Gap 9 (5-15); Carbon Dioxide 26 mmol/L (20-31)
[2024-07-19 06:50] LABS: Calcium 8.3 mg/dL (8.7-10.4)
[2024-07-19 06:55] LABS: BUN/Creatinine Ratio 12.8 (10.0-20.0); Blood Urea Nitrogen 17 mg/dL (9-23); Glucose 173 mg/dL (74-106)
[2024-07-19 07:01] LABS: Basophils # (auto) 0.1 10 ^3/uL (0-0.2); Eosinophils # (auto) 0.1 10 ^3/uL (0-0.8); Eosinophils % (auto) 1.9 % (0.0-7.0); Hematocrit 29.8 % (41.0-53.0); Hemoglobin 9.9 g/dL (13.5-17.5); Lymphocytes # (auto) 0.8 10 ^3/uL (0.4-5.4); Lymphocytes % (auto) 11.9 % (10.0-50.0); Mean Corpuscular Hemoglobin 28.8 pg (28.0-32.0); Mean Corpuscular Hgb Conc. 33.1 g/dL (32.0-36.0); Mean Corpuscular Volume 87.1 fL (80.0-100.0); Monocytes # (auto) 0.5 10 ^3/uL (0-1.3); Monocytes % (auto) 7.5 % (0.0-12.0); Neutrophils # (auto) 5.5 10 ^3/uL (1.6-8.6); Neutrophils % (auto) 77.7 % (37.0-80.0); Platelet Count (auto) 344 10^3/uL (140-450); Red Blood Cells 3.42 10^6/uL (4.5-5.90); Red Cell Distribution Width 17.2 % (11.8-14.3); White Blood Cell 7.1 10^3/uL (4.4-10.8)
[2024-07-19] MEDS: CLOPIDOGREL BISULFATE 75 MG TAB PO SCH (09:25)
[2024-07-19] MEDS: LISINOPRIL 20 MG TAB PO SCH (09:25)
[2024-07-19] MEDS ORDERED: ISOSORBIDE MONONITRATE ER 60 MG TAB PO SCH (10:00)
[2024-07-20 04:41] VITALS: BP 140/81; PULSE 72; RESP 16; TEMP 98; O2SAT 91
[2024-07-20 08:00] VITALS: PULSE 83
[2024-07-20 08:30] VITALS: BP 146/90; PULSE 84; RESP 16; TEMP 98.4; O2SAT 98
[2024-07-20 11:18] LABS: Urine Bacteria None Seen /hpf (None Seen)
[2024-07-20 12:07] LABS: Urine Blood Negative /uL (Negative); Urine Clarity Clear (Clear); Urine Color Light-Yellow (Yellow); Urine Protein, UAD 1+ (Negative); Urine Specific Gravity 1.014 (1.001-1.035); Urine Urobilinogen Normal (Negative); Urine WBC 2 /hpf (0 - 3); Urine pH 6.5 (5.0-9.0)
[2024-07-20 13:00] VITALS: BP 122/74; PULSE 76; RESP 19; TEMP 98.1; O2SAT 96
[2024-07-20 15:15] VITALS: BP 146/90; PULSE 84; RESP 16; TEMP 36.7; O2SAT 98
[2024-07-20 16:35] VITALS: BP 137/77; PULSE 80; RESP 16; TEMP 98.8; O2SAT 96
== END 2024-07-20 18:48 | disposition home health service (06) | DRG 280 ==
LOC: EDBD 13:39 → ER 13:39 → TELE 17:05 → TELE-EAST 07-19 03:00
PROVIDERS: ADMIT Registered Nurse General Practice; ATTEND Family Medicine
DX: I21.4 Non-ST elevation (NSTEMI) myocardial infarction (principal); I50.33 Acute on chronic diastolic (congestive) heart failure; J15.0 Pneumonia due to Klebsiella pneumoniae; J96.21 Acute and chronic respiratory failure with hypoxia; N17.0 Acute kidney failure with tubular necrosis; I48.20 Chronic atrial fibrillation, unspecified; J44.1 Chronic obstructive pulmonary disease with (acute) exacerbation; J44.0 Chronic obstructive pulmonary disease with (acute) lower respiratory infection; I11.0 Hypertensive heart disease with heart failure; G47.00 Insomnia, unspecified; E11.9 Type 2 diabetes mellitus without complications; K21.9 Gastro-esophageal reflux disease without esophagitis; E78.00 Pure hypercholesterolemia, unspecified; Z86.73 Personal history of transient ischemic attack (TIA), and cerebral infarction without residual deficits; Z86.74 Personal history of sudden cardiac arrest; Z89.511 Acquired absence of right leg below knee; Z89.512 Acquired absence of left leg below knee; Z88.8 Allergy status to other drugs, medicaments and biological substances
CPT/HCPCS: 36415; 71045; 80048; 80053; 81001; 83880; 84484; 85025; 87040; 87086; 93005; 99291; G0378